=== PATIENT | female | born 1990 | race African-American/Black ===

== ENCOUNTER 2018-04-13 15:16 | Emergency (ER) | payer MEDICAID, OTHER ==
[~2018-04-13] VITALS: Ht 157.5 cm; Wt 58.1 kg
[~2018-04-13 15:16] MED LIST: PREN-385 PO
[2018-04-13 15:29] VITALS: BP 102/63
[2018-04-13] MEDS ORDERED: KETOROLAC 60 MG/2 ML VIAL IM ONE (19:20)
[2018-04-13] MEDS ORDERED: TETRACAINE HCL/PF 0.5% OPTH 4 ML BTL OP ONE (19:20)
[2018-04-13 19:59] VITALS: BP 114/68
== END 2018-04-13 19:52 | disposition home or self-care (01) ==
LOC: MED 15:16
DX: H10.9 Unspecified conjunctivitis (principal)
CPT/HCPCS: 96372; 99283; J1885

== ENCOUNTER 2018-06-02 15:25 | Emergency (ER) | payer MEDICAID ==
[~2018-06-02] VITALS: Ht 157.5 cm; Wt 56.4 kg
[2018-06-02 15:32] VITALS: BP 138/77
--- NOTE | 2018-06-02 15:36 | NUR ---
PT AMBULATES BACK TO THE LOBBY
--- NOTE | 2018-06-02 17:11 | NUR ---
PT AMBULATED TO ER BED 10
--- NOTE | 2018-06-02 17:59 | NUR ---
27F C/O DRY NON PRODUCTIVE COUGH SINCE YESTERDAY, SOB, AND CHEST WALL DISCOMFORT WHEN COUGHING TODAY. PT STATES SHE FEEL SHE CAN'T GET OUT THE "MUCUS" FROM HER LUNGS WHEN SHE COUGHS. PT DENIES FEVER. RR ARE EVEN AND UNLABORED. CLEAR SPEECH WITH FULL SENTENCES. PULSE OX=98%. PT IS AOX4 TO PERSON, PLACE, SITUATION, AND TIME. NAD. VSS. WILL CONTINUE TO MONITOR.
[2018-06-02 18:55] VITALS: BP 130/85
--- NOTE | 2018-06-02 18:55 | NUR ---
Patient discharged with v/s stable. Written and verbal after care instructions given and explained. Patient alert, oriented and verbalized understanding of instructions. Ambulatory with steady gait. All questions addressed prior to discharge. ID band removed. Patient advised to follow up with PMD. Rx of AZITHROMYCIN 250MG, IBUPROFEN 600MG, PREDNISONE 50MG, TESSALON PERLES 200MG AND ACETAMINOPHEN 500MG given. Patient educated on indication of medication including possible reaction and side effects. Opportunity to ask questions provided and answered.
== END 2018-06-02 18:55 | disposition home or self-care (01) ==
LOC: MED 15:25
DX: J06.9 Acute upper respiratory infection, unspecified (principal)
CPT/HCPCS: 71046; 99283; Q0092

== ENCOUNTER 2019-02-21 22:20 | Emergency (ER) | payer MEDICAID ==
[~2019-02-21] VITALS: Ht 157.5 cm; Wt 59.0 kg
[2019-02-21 22:25] VITALS: BP 124/80
[2019-02-21] MEDS ORDERED: NACL 0.9% 1,000 ML IV ONE (23:15)
[2019-02-21] MEDS ORDERED: KETOROLAC 30 MG/ML VIAL IVP ONE (23:15)
[2019-02-22 00:17] VITALS: BP 124/80
== END 2019-02-22 00:15 | disposition home or self-care (01) ==
LOC: MED 22:20
DX: J06.9 Acute upper respiratory infection, unspecified (principal); Z79.899 Other long term (current) drug therapy
CPT/HCPCS: 81025; 87804; 96374; 99283; J1885; J7030

== ENCOUNTER 2019-05-02 11:06 | Emergency (ER) | payer MEDICAID ==
[~2019-05-02] VITALS: Ht 157.5 cm; Wt 54.4 kg
[2019-05-02 11:11] VITALS: BP 134/62
--- NOTE | 2019-05-02 11:29 | NUR ---
28 Y/O F PREENTS TO ER C/O BODY ACHES SINCE TODAY. PER PT SHE ATE 2 CORNDOGS AND A CUPCAKE FOR DINNER LAST NIGHT AND HAD 3 EPISODES OF VOMITING. PT HAD NO EPISODES OF VOMITING TODAY. PT DOES HAVE MILD NAUSEA. PT C/O BODY ACHES 10/10, ACHING. PT DENIES FEVER CHILLS, OR OTHER FLU-LIKE SYMPTOMS. HOB ELEVATED, BED IN LOWEST POSITION, BED RAIL UP X1. WAITING FOR ERMD TO EVALUATE PT. ALLERGIES: NKA MED HX: NONE
[2019-05-02 12:24] VITALS: BP 13/65
--- NOTE | 2019-05-02 12:24 | NUR ---
Patient discharged with v/s stable. Written and verbal after care instructions given and explained. Patient alert, oriented and verbalized understanding of instructions. Ambulatory with steady gait. All questions addressed prior to discharge. ID band removed. Patient advised to follow up with PMD. Rx of Lomotil 2.5mg and Zofran ODT 4mg given. Patient educated on indication of medication including possible reaction and side effects. Opportunity to ask questions provided and answered.
== END 2019-05-02 12:24 | disposition home or self-care (01) ==
LOC: MED 11:06
DX: R11.10 Vomiting, unspecified (principal); R19.7 Diarrhea, unspecified; R10.32 Left lower quadrant pain; R10.13 Epigastric pain; Z79.899 Other long term (current) drug therapy
CPT/HCPCS: 99283

== ENCOUNTER 2019-08-18 06:37 | Emergency (ER) | payer MEDICAID ==
[~2019-08-18] VITALS: Ht 157.5 cm; Wt 61.2 kg
[2019-08-18 06:42] VITALS: BP 111/71
--- NOTE | 2019-08-18 06:47 | NUR ---
PT AMBULATED TO ER BED 07
--- NOTE | 2019-08-18 06:55 | NUR ---
BIBS. C/O PAIN @ 10/ TO NECK, RADIATING TO LT UPPER BACK. NO PRIOR INJURY. NO REDNESS/SWELLING NOTED. LIMITED ROM. PMH-NONE MEDS TAKEN- NONE NKA
--- NOTE | 2019-08-18 07:11 | NUR ---
RECEIVED REPORT FROM CONTRERAS TAYLOR FOR CONTINUATION OF CARE
--- NOTE | 2019-08-18 07:30 | NUR ---
Dr. Mcgill is evaluating the patient at bedside.
[2019-08-18] MEDS ORDERED: MORPHINE SULFATE 2 MG/ML SYR IM ONE ×2 (07:35→09:15)
[2019-08-18] MEDS ORDERED: LORazepam 1 MG TAB PO ONE (07:35)
--- NOTE | 2019-08-18 08:00 | NUR ---
PT RESTING IN BED, PT REPORTS PAIN MEDICATION PROVIDED VERY MUCH RELIEF
--- NOTE | 2019-08-18 09:10 | NUR ---
Alida taylormarques in [facility] - 08/18/19 at 0915 by JOE PT RESTING IN BED, PT REPORTS PAIN MEDICATION PROVIDED VERY MUCH RELIEF
[2019-08-18 09:43] VITALS: BP 111/71
--- NOTE | 2019-08-18 09:44 | NUR ---
Patient discharged with v/s stable. Written and verbal after care instructions given and explained. Patient alert, oriented and verbalized understanding of instructions. Ambulatory with steady gait. All questions addressed prior to discharge. ID band removed. Patient advised to follow up with PMD. Rx of ROBAXIN, TORADOL, IBUPROFEN given. Patient educated on indication of medication including possible reaction and side effects. Opportunity to ask questions provided and answered.
== END 2019-08-18 09:44 | disposition home or self-care (01) ==
LOC: MED 06:37
DX: M43.6 Torticollis (principal); R03.0 Elevated blood-pressure reading, without diagnosis of hypertension; Z79.899 Other long term (current) drug therapy
CPT/HCPCS: 72040; 96372; 99284; J2270; 99283

== ENCOUNTER 2019-08-19 18:46 | Emergency (ER) | payer MEDICAID ==
[~2019-08-19] VITALS: Ht 157.5 cm; Wt 61.5 kg
[2019-08-19 18:52] VITALS: BP 126/83
--- NOTE | 2019-08-19 19:00 | NUR ---
Patient ambulated to bed 4. RN evaluating patient at bedside.
--- NOTE | 2019-08-19 19:19 | NUR ---
28 YEAR OLD FEMALE COMPLAINS OF RIGHT SIDED CHIN SWELLING X 1 DAY. PATIENT DENIES N/V/D, CHEST PAIN, OR ANY OTHER COMPLAINTS. PATIENT AOX4, BREATHING EVEN AND UNLABORED, SKIN WARM AND DRY. BED IN LOWEST POSITION, LOCKED, BED RAIL UPX1. ERMD AWARE OF PT STATUS. FAMILY AT BEDSIDE. PMH - DENIES LMS - ON PERIOD ALLERGIES - NKA
[2019-08-19] MEDS ORDERED: AMOXIL/CLAVULANATE 875/125 MG 1 TAB PO ONE (19:50)
[2019-08-19 20:30] VITALS: BP 123/69
--- NOTE | 2019-08-19 20:30 | NUR ---
Patient discharged with v/s stable. Written and verbal after care instructions given and explained. Patient alert, oriented and verbalized understanding of instructions. Ambulatory with steady gait. All questions addressed prior to discharge. ID band removed. Patient advised to follow up with PMD. Rx of Flexeril, Augmentin given. Patient educated on indication of medication including possible reaction and side effects. Opportunity to ask questions provided and answered.
== END 2019-08-19 20:30 | disposition home or self-care (01) ==
LOC: MED 18:46
DX: K04.7 Periapical abscess without sinus (principal); F17.210 Nicotine dependence, cigarettes, uncomplicated; Z79.899 Other long term (current) drug therapy
CPT/HCPCS: 99283

== ENCOUNTER 2020-05-01 22:39 | Emergency (ER) | payer MEDICAID ==
[~2020-05-01] VITALS: Ht 162.6 cm; Wt 64.4 kg
[2020-05-01 22:55] VITALS: BP 117/62
--- NOTE | 2020-05-01 23:00 | NUR ---
PT AMBUALTED TO BED 1 WITH STEADY GAIT.
--- NOTE | 2020-05-01 23:05 | NUR ---
29 Y/O FEAMLE BIB SELF FOR C/O RASH OVER A/P CHEST AND BACK. PT HAS C/O ITCHYNESS X 1 DAY. NO REDNESS NOTED. SMALL BUMPS NOTED OVER CHEST AND BACK. DENIES PAIN AT THIS TIME. MEDHX: DENIES NKA
--- NOTE | 2020-05-01 23:09 | NUR ---
ERMD AT BEDSIDE EVALUATING PT
[2020-05-01 23:30] VITALS: BP 117/62
--- NOTE | 2020-05-01 23:30 | NUR ---
Patient discharged with v/s stable. Written and verbal after care instructions given and explained. Patient alert, oriented and verbalized understanding of instructions. Ambulatory with steady gait. All questions addressed prior to discharge. ID band removed. Patient advised to follow up with PMD. Rx of LOTRIMIN AND HYDROCORTISONE given. Patient educated on indication of medication including possible reaction and side effects. Opportunity to ask questions provided and answered.
== END 2020-05-01 23:30 | disposition home or self-care (01) ==
LOC: MED 22:39
DX: L25.9 Unspecified contact dermatitis, unspecified cause (principal); B35.9 Dermatophytosis, unspecified; Z79.899 Other long term (current) drug therapy
CPT/HCPCS: 99282; 99283

== ENCOUNTER 2020-05-05 19:15 | Emergency (ER) | payer MEDICAID ==
[~2020-05-05] VITALS: Ht 160 cm; Wt 64.9 kg
[2020-05-05 19:31] VITALS: BP 126/87
--- NOTE | 2020-05-05 19:50 | NUR ---
PT 29 Y/O FEMALE BIB SELF FOR C/O RASH X 4 DAYS. PT STATES CAME TO ER FOR TX A FEW DAYS AGO BUT RASH HAS SPREAD. PT DENIES USING NEW SHAMPOOS, LOTIONS, LAUNDRY DETERGENT. PT STATES HAS NOT TRIED ANY RECENT NEW FOODS. PT AIRWAY PATENT. PT RESPIRATIONS ARE EVEN AND UNLABORED. PT NOTED WITH RAISED BUMPS ON ANTERIOR AND POSTIERIOR CHEST. PT STATES RASH HAS ALSO SPREAD TO BACK. PT DENIES PAIN BUT REPORTS ITCHYNESS. MEDHX: DENIES ALLERGIES: NKA
--- NOTE | 2020-05-05 20:03 | NUR ---
ERMD ASSESSING PT AT [facility].
[2020-05-05 20:34] VITALS: BP 126/87
--- NOTE | 2020-05-05 20:34 | NUR ---
Patient discharged with v/s stable. Written and verbal after care instructions given and explained. Patient alert, oriented and verbalized understanding of instructions. Ambulatory with steady gait. All questions addressed prior to discharge. ID band removed. Patient advised to follow up with PMD. Rx of DIPHENHYDRAMINE given. Patient educated on indication of medication including possible reaction and side effects. Opportunity to ask questions provided and answered.
== END 2020-05-05 20:34 | disposition home or self-care (01) ==
LOC: MED 19:15
DX: R21 Rash and other nonspecific skin eruption (principal); Z79.899 Other long term (current) drug therapy
CPT/HCPCS: 99282

== ENCOUNTER 2020-05-09 11:20 | Emergency (ER) | payer MEDICAID ==
[~2020-05-09] VITALS: Ht 157.5 cm; Wt 64.0 kg
[2020-05-09 11:29] VITALS: BP 118/73
--- NOTE | 2020-05-09 11:35 | NUR ---
amb to bed 09
--- NOTE | 2020-05-09 12:25 | NUR ---
PATIENT LEFT WITHOUT BEING SEEN BY DR. VALENTINE. NO FURTHER CARE PROVIDED FOR PATIENT.
== END 2020-05-09 12:25 | disposition left against medical advice (07) ==
LOC: MED 11:20
DX: R21 Rash and other nonspecific skin eruption (principal); Z53.21 Procedure and treatment not carried out due to patient leaving prior to being seen by health care provider

== ENCOUNTER 2020-12-24 15:06 | Emergency (ER) | payer MEDICAID ==
[~2020-12-24] VITALS: Ht 157.5 cm; Wt 63.0 kg
[2020-12-24 15:18] VITALS: BP 122/83
--- NOTE | 2020-12-24 15:22 | NUR ---
PT AMBULATED TO BED
[2020-12-24] MEDS ORDERED: MYCC TP (15:48)
[2020-12-24] MEDS ORDERED: KEN.1O TP (15:48)
[2020-12-24 15:53] VITALS: BP 122/83
--- NOTE | 2020-12-24 15:53 | NUR ---
Patient discharged with v/s stable. Written and verbal after care instructions given and explained. Patient alert, oriented and verbalized understanding of instructions. Ambulatory with steady gait. All questions addressed prior to discharge. ID band removed. Patient advised to follow up with PMD. Rx of NYSTATIN, TRIAMCINOLONE given. Patient educated on indication of medication including possible reaction and side effects. Opportunity to ask questions provided and answered.
== END 2020-12-24 15:53 | disposition home or self-care (01) ==
LOC: MED 15:06
DX: L30.9 Dermatitis, unspecified (principal); B35.4 Tinea corporis
CPT/HCPCS: 99283

== ENCOUNTER 2021-11-03 21:17 | Emergency (ER) | payer BC, MEDICAID ==
[~2021-11-03] VITALS: Ht 160 cm; Wt 63.5 kg
[~2021-11-03 21:17] MED LIST changes: +KEN.1O TP; +MYCC TP
[2021-11-03 21:21] VITALS: BP 134/76
--- NOTE | 2021-11-03 22:22 | NUR ---
ERMD AT BEDSIDE ASSESSING PT.
[2021-11-03] MEDS ORDERED: FAMO40TA12 PO (22:28)
[2021-11-03] MEDS ORDERED: FAMOTIDINE 20 MG TAB PO ONE (22:35)
[2021-11-03 22:47] VITALS: BP 134/76
--- NOTE | 2021-11-03 22:47 | NUR ---
Patient discharged with v/s stable. Written and verbal after care instructions given and explained. Patient alert, oriented and verbalized understanding of instructions. Ambulatory with steady gait. All questions addressed prior to discharge. ID band removed. Patient advised to follow up with PMD. Rx of PEPCID given. Patient educated on indication of medication including possible reaction and side effects. Opportunity to ask questions provided and answered. D/C COMPLETED BY TRENT ORTEGA.
== END 2021-11-03 22:47 | disposition home or self-care (01) ==
LOC: MED 21:17
DX: K21.9 Gastro-esophageal reflux disease without esophagitis (principal); Z79.899 Other long term (current) drug therapy
CPT/HCPCS: 99283

== ENCOUNTER 2022-12-10 14:17 | Emergency (ER) | payer BC, OTHER ==
[~2022-12-10] VITALS: Ht 157.5 cm; Wt 73.9 kg
[~2022-12-10 14:17] MED LIST changes: +FAMO40TA12 PO; -MYCC TP; +NYST15CR10 TP
[2022-12-10 14:21] VITALS: BP 121/83
[2022-12-10] MEDS ORDERED: SUD30 PO (15:10)
[2022-12-10] MEDS ORDERED: PROM118S5 PO (15:10)
[2022-12-10] MEDS ORDERED: BENZ-300 PO (15:10)
--- NOTE | 2022-12-10 15:30 | NUR ---
CHANDANA AKHTAR IN ROOM FOR EXAM
--- NOTE | 2022-12-10 15:36 | NUR ---
SWABS COLLECTED ORDERED
--- NOTE | 2022-12-10 15:47 | NUR ---
Patient discharged with v/s stable. Written and verbal after care instructions given and explained. Patient verbalized understanding. Ambulatory with to car. All questions addressed prior to discharge. Advised to follow up with PMD.
[2022-12-10 15:49] VITALS: BP 121/83
--- NOTE | 2022-12-10 15:50 | NUR ---
PER CHANDANA AKHTAR, DO NOT DO STREP THROAT SWAB
== END 2022-12-10 15:26 | disposition home or self-care (01) ==
LOC: MED 14:17
DX: J06.9 Acute upper respiratory infection, unspecified (principal); Z20.822 Contact with and (suspected) exposure to COVID-19; R03.0 Elevated blood-pressure reading, without diagnosis of hypertension; F17.210 Nicotine dependence, cigarettes, uncomplicated; Z72.89 Other problems related to lifestyle; Z79.899 Other long term (current) drug therapy
CPT/HCPCS: 99283

== ENCOUNTER 2023-10-31 08:14 | Emergency (ER) | payer OTHER ==
[~2023-10-31] VITALS: Ht 157.5 cm; Wt 76.2 kg
[~2023-10-31 08:14] MED LIST changes: +BENZ-300 PO; +PROM118S5 PO; +SUD30 PO
[2023-10-31 08:17] VITALS: BP 124/70; PULSE 58; RESP 18; TEMP 98.9; O2SAT 96
[2023-10-31] MEDS ORDERED: AMOX1TAB8 PO (09:46)
[2023-10-31] MEDS: DEXAMETHASONE 10 MG/ML VIAL IM ONE (09:46)
[2023-10-31 10:57] LABS: FLU A ANTIGEN negative (NEGATIVE); FLU B ANTIGEN negative (NEGATIVE)
== END 2023-10-31 10:01 | disposition home or self-care (01) ==
LOC: MED 08:14
DX: J02.9 Acute pharyngitis, unspecified (principal); Z20.822 Contact with and (suspected) exposure to COVID-19; Z79.2 Long term (current) use of antibiotics; Z79.899 Other long term (current) drug therapy; Z91.013 Allergy to seafood; Z88.8 Allergy status to other drugs, medicaments and biological substances
CPT/HCPCS: 87426; 87804; 96372; 99283; J1100

== ENCOUNTER 2024-04-15 15:08 | Emergency (ER) | payer OTHER ==
[~2024-04-15] VITALS: Ht 160 cm; Wt 76.7 kg
[~2024-04-15 15:08] MED LIST changes: +AMOX1TAB8 PO
[2024-04-15 15:18] VITALS: BP 134/91; PULSE 85; RESP 18; TEMP 98.4; O2SAT 99
[2024-04-15] MEDS ORDERED: BENZ-300 PO (15:52)
[2024-04-15] MEDS ORDERED: GUAI237L61 PO (15:52)
[2024-04-15] MEDS ORDERED: IBUP-2213 PO (15:52)
== END 2024-04-15 16:10 | disposition home or self-care (01) ==
LOC: MED 15:08
DX: J06.9 Acute upper respiratory infection, unspecified (principal); B97.89 Other viral agents as the cause of diseases classified elsewhere; Z79.899 Other long term (current) drug therapy
CPT/HCPCS: 99282